=== PATIENT | male | born 1960 | race Caucasian/White ===

== ENCOUNTER 2022-04-16 10:48 | Inpatient (IN) | payer SELFPAY ==
[2022-04-16 11:31] LABS: #Lymphocytes 0.4 thou/uL (1.20-3.40); #Monocytes 0.9 thou/uL (0.11-0.59); #Neutrophils 8.4 thou/uL (1.40-6.50); %Basophils 0.1 % (0.0-1.0); %Eosinophils 0.1 % (0.0-10.0); %Lymphocytes 4.4 % (21.0-51.0); %Neutrophils 86.5 % (42.0-75.0); Hemoglobin 13.9 g/dL (14.0-18.0); Mean Corpuscular HGB CONC 34.8 g/dL (32.0-36.0); Mean Corpuscular Hemoglobin 35.1 pg (27.0-31.0); Mean Platelet Volume 7.7 fL (7.4-10.4); Platelet Count 140 10x3/uL (130-400); RBC Distribution Width 12.7 % (11.5-14.5); Red Blood Cell (RBC) Count 3.97 mill/uL (4.70-6.10); White Blood Cell (WBC) Count 9.8 10x3/uL (4.8-10.8)
[2022-04-16 11:51] LABS: ALT (SGPT) 107 U/L (8-55); AST (SGOT) 579 U/L (5-34); Albumin 3.4 g/dL (3.4-4.8); Alkaline Phosphatase 61 U/L (40-110); Anion Gap 19 mmol/L (10-20); BUN (Urea Nitrogen) 56 mg/dL (8.4-25.7); Bilirubin, Total 1.1 mg/dL (0.2-1.2); Calc. Creatinine Clearance 0 mL/min (70-130); Calcium 8.4 mg/dL (7.8-10.44); Carbon Dioxide 16 mmol/L (23-31); Chloride 108 mmol/L (98-107); Estimated GFR 37; Globulin 2.6 g/dL (2.4-3.5); Glucose 85 mg/dL (80-115); Lipase Less than 4 U/L (8-78); Potassium 4.5 mmol/L (3.5-5.1); Sodium 138 mmol/L (136-145)
[2022-04-16 12:10] LABS: Bacteria/HPF 2+ HPF (None Seen); Bilirubin Negative (Negative); Blood, Urine 3+ (Negative); Clarity Cloudy (Clear); Glucose, Urine (Dipstick) 500 mg/dL (Negative); Ketone, Urine Trace mg/dL (Negative); Leukocyte Negative Leu/uL (Negative); Nitrite Negative (Negative); Protein, Urine (Dipstick) 30 mg/dL (Neg-Trace); RBC/HPF 0-3 HPF (0-3); Specific Gravity, Urine 1.027 (1.002-1.036); Squamous Epithelial 0-3 HPF (0-3); Urobilinogen Normal mg/dL (Less than 2); pH, Urine 5.5 (5.0-9.0)
[2022-04-16 12:14] LABS: CKMB 76.3 ng/mL (0-6.6)
[2022-04-16 12:17] LABS: Amphetamine Not Detected (NotDetected); Barbiturates Screen Not Detected (NotDetected); Benzodiazepine Screen Not Detected (NotDetected); Cocaine Metabolite Screen Not Detected (NotDetected); Methadone Not Detected (NotDetected); Methamphetamine Not Detected (NotDetected); Opiate Screen Not Detected (NotDetected); Oxycodone Screen Not Detected (NotDetected); Phencyclidine (PCP) Not Detected (NotDetected); THC/Cannabinoid Screen Not Detected (NotDetected); Tricyclic Screen Detected (NotDetected)
[2022-04-16 12:58] LABS: Magnesium 2.4 mg/dL (1.6-2.6)
[2022-04-16] MEDS ORDERED: Aspirin Chewable 81 MG TAB ONE (13:13)
[2022-04-16] MEDS ORDERED: Ziprasidone 20 MG VIAL ONE (13:13)
[2022-04-16 13:14] LABS: Acetaminophen Less than 10.0 mcg/mL (10.0-30.0); Alcohol Less than 10 mg/dL (Less than 10); Salicylate Less than 8.0 mg/dL (15.0-30.0)
[2022-04-16] MEDS ORDERED: Sterile Water 10 ML ONE (13:16)
[2022-04-16] MEDS ORDERED: Ondansetron PF 4 MG/2 ML Vial IVP PRN (14:22)
[2022-04-16 14:25] LABS: Creatinine, Urine 159.04 mg/dL (63-166)
[2022-04-16 14:27] LABS: SARS-CoV-2 NAA Rapid Test Not Detected (NotDetected)
[2022-04-16] MEDS ORDERED: Lactated Ringer's 1,000 ML IV SCH (14:30)
[2022-04-16 15:44] LABS: Lactic Acid 1.8 mmol/L (0.5-2.2)
[2022-04-16 15:53] LABS: Troponin I 0.084 ng/mL (< 0.028)
[2022-04-16] MEDS: Lactated Ringer's 1,000 ML IV SCH ×2 (16:17→22:05)
[2022-04-16 19:48] LABS: Troponin I 0.072 ng/mL (< 0.028)
[2022-04-17] MEDS: Lactated Ringer's 1,000 ML IV SCH ×4 (01:52→17:02)
[2022-04-17] MEDS ORDERED: diphenhydrAMINE 50 MG/ML VIAL IVP SCH (02:15)
[2022-04-17] MEDS ORDERED: Ziprasidone 20 MG VIAL IM SCH (05:45)
[2022-04-17 05:59] LABS: CK (CPK) 17821 U/L (30-200)
[2022-04-17] MEDS ORDERED: Dextrose 10% in Water 250 ML IV SCH (06:00)
[2022-04-17] MEDS ORDERED: Sterile Water 10 ML VIAL FS PRN (06:00)
[2022-04-17 06:07] LABS: ALT (SGPT) 108 U/L (8-55); AST (SGOT) 471 U/L (5-34); Albumin 3.1 g/dL (3.4-4.8); Alkaline Phosphatase 57 U/L (40-110); Anion Gap 15 mmol/L (10-20); BUN (Urea Nitrogen) 38 mg/dL (8.4-25.7); Calc. Creatinine Clearance 32 mL/min (70-130); Calcium 8.7 mg/dL (7.8-10.44); Carbon Dioxide 18 mmol/L (23-31); Chloride 110 mmol/L (98-107); Estimated GFR 87; Globulin 2.8 g/dL (2.4-3.5); Glucose 54 mg/dL (80-115); Potassium 4.3 mmol/L (3.5-5.1); Protein, Total 5.9 g/dL (5.8-8.1); Sodium 139 mmol/L (136-145)
[2022-04-17] MEDS ORDERED: Haloperidol Lactate 5 MG/ML VIAL SLOW IVP SCH (09:45)
[2022-04-17] MEDS ORDERED: Haloperidol Lactate 5 MG/ML VIAL ONE ×2 (15:09→17:34)
[2022-04-17] MEDS ORDERED: Haloperidol Lactate 5 MG/ML VIAL IM SCH ×2 (15:45→17:45)
[2022-04-17] MEDS ORDERED: Lorazepam 2 MG/ML VIAL SLOW IVP SCH (17:00)
[2022-04-17] MEDS ORDERED: diphenhydrAMINE 50 MG/ML VIAL ONE (17:34)
[2022-04-17] MEDS ORDERED: diphenhydrAMINE 50 MG/ML VIAL IM SCH (17:45)
[2022-04-17] MEDS: Nicotine 14 MG PATCH TD SCH (18:58)
[2022-04-17] MEDS: Dextrose 5%-Lactated Ringers 1,000 ML IV SCH (18:59)
[2022-04-17] MEDS ORDERED: Diazepam 10 MG/2 ML SYRINGE IVP SCH (19:45)
[2022-04-17] MEDS ORDERED: Dextrose 50% Abboject 50 ML SYRINGE SLOW IVP PRN (21:34)
[2022-04-17] MEDS ORDERED: Dextrose 5% in Water 1,000 ML IV PRN (21:34)
[2022-04-18] MEDS: Dextrose 5%-Lactated Ringers 1,000 ML IV SCH ×3 (02:09→17:48)
[2022-04-18 02:43] LABS: ALT (SGPT) 104 U/L (8-55); AST (SGOT) 316 U/L (5-34); Albumin 2.8 g/dL (3.4-4.8); Alkaline Phosphatase 54 U/L (40-110); Anion Gap 10 mmol/L (10-20); BUN (Urea Nitrogen) 19 mg/dL (8.4-25.7); Bilirubin, Total 0.8 mg/dL (0.2-1.2); Calc. Creatinine Clearance 38 mL/min (70-130); Calcium 8.3 mg/dL (7.8-10.44); Carbon Dioxide 24 mmol/L (23-31); Chloride 108 mmol/L (98-107); Estimated GFR 98; Globulin 2.5 g/dL (2.4-3.5); Glucose 113 mg/dL (80-115); Potassium 4.1 mmol/L (3.5-5.1); Protein, Total 5.3 g/dL (5.8-8.1); Sodium 138 mmol/L (136-145)
[2022-04-18 02:56] LABS: CK (CPK) 7261 U/L (30-200)
[2022-04-18] MEDS ORDERED: Diazepam 10 MG/2 ML SYRINGE IVP SCH ×3 (03:45→05:45)
[2022-04-18] MEDS ORDERED: Diazepam 5 MG TAB PO SCH ×4 (10:45→21:00)
[2022-04-18 12:56] VITALS: BMI 19.3
[2022-04-18] MEDS: Nicotine 14 MG PATCH TD SCH (17:48)
[2022-04-19] MEDS: Dextrose 5%-Lactated Ringers 1,000 ML IV SCH ×2 (01:15→08:14)
[2022-04-19 06:22] LABS: ALT (SGPT) 74 U/L (8-55); AST (SGOT) 138 U/L (5-34); Albumin 2.4 g/dL (3.4-4.8); Alkaline Phosphatase 51 U/L (40-110); Anion Gap 9 mmol/L (10-20); BUN (Urea Nitrogen) 13 mg/dL (8.4-25.7); Bilirubin, Total 0.7 mg/dL (0.2-1.2); CK (CPK) 2315 U/L (30-200); Calc. Creatinine Clearance 92 mL/min (70-130); Calcium 8.1 mg/dL (7.8-10.44); Carbon Dioxide 27 mmol/L (23-31); Chloride 107 mmol/L (98-107); Estimated GFR 101; Globulin 2.5 g/dL (2.4-3.5); Glucose 112 mg/dL (80-115); Potassium 3.3 mmol/L (3.5-5.1); Protein, Total 4.9 g/dL (5.8-8.1); Sodium 140 mmol/L (136-145)
[2022-04-19] MEDS ORDERED: Diazepam 5 MG TAB PO SCH ×3 (08:00→21:00)
[2022-04-19] MEDS: Lactated Ringer's 1,000 ML IV SCH ×2 (08:15→17:37)
[2022-04-19] MEDS ORDERED: Potassium Chloride 20 MEQ TAB PO SCH (08:45)
[2022-04-19] MEDS: Nicotine 14 MG PATCH TD SCH (17:40)
[2022-04-20] MEDS: Lactated Ringer's 1,000 ML IV SCH ×3 (03:52→17:34)
[2022-04-20 05:41] LABS: #Eosinphils 0.1 thou/uL (0.0-0.7); #Lymphocytes 1.6 thou/uL (1.20-3.40); #Monocytes 0.7 thou/uL (0.11-0.59); #Neutrophils 5.5 thou/uL (1.40-6.50); %Basophils 0.1 % (0.0-1.0); %Eosinophils 1.8 % (0.0-10.0); %Lymphocytes 19.7 % (21.0-51.0); %Monocytes 8.9 % (0.0-10.0); %Neutrophils 69.6 % (42.0-75.0); Mean Corpuscular Hemoglobin 34.9 pg (27.0-31.0); Mean Platelet Volume 7.6 fL (7.4-10.4); Platelet Count 154 10x3/uL (130-400); RBC Distribution Width 12.3 % (11.5-14.5); Red Blood Cell (RBC) Count 3.16 mill/uL (4.70-6.10); White Blood Cell (WBC) Count 7.9 10x3/uL (4.8-10.8)
[2022-04-20 06:00] LABS: ALT (SGPT) 71 U/L (8-55); AST (SGOT) 94 U/L (5-34); Albumin 2.6 g/dL (3.4-4.8); Alkaline Phosphatase 55 U/L (40-110); Anion Gap 11 mmol/L (10-20); BUN (Urea Nitrogen) 14 mg/dL (8.4-25.7); Bilirubin, Total 0.7 mg/dL (0.2-1.2); CK (CPK) 1187 U/L (30-200); Calc. Creatinine Clearance 100 mL/min (70-130); Carbon Dioxide 25 mmol/L (23-31); Chloride 107 mmol/L (98-107); Estimated GFR 104; Globulin 2.2 g/dL (2.4-3.5); Glucose 95 mg/dL (80-115); Potassium 3.4 mmol/L (3.5-5.1); Protein, Total 4.8 g/dL (5.8-8.1); Sodium 140 mmol/L (136-145)
[2022-04-20] MEDS ORDERED: Potassium Chloride 20 MEQ TAB PO SCH (08:15)
[2022-04-20] MEDS ORDERED: Polyethylene Glycol 3350 17 GM Packet PO SCH (16:15)
[2022-04-20] MEDS: Nicotine 14 MG PATCH TD SCH ×2 (17:33→17:35)
[2022-04-20] MEDS: Famotidine 20 MG TAB PO SCH (21:38)
[2022-04-21 05:39] LABS: ALT (SGPT) 87 U/L (8-55); AST (SGOT) 86 U/L (5-34); Albumin 2.7 g/dL (3.4-4.8); Alkaline Phosphatase 69 U/L (40-110); Anion Gap 11 mmol/L (10-20); BUN (Urea Nitrogen) 10 mg/dL (8.4-25.7); Bilirubin, Total 0.7 mg/dL (0.2-1.2); CK (CPK) 716 U/L (30-200); Calc. Creatinine Clearance 96 mL/min (70-130); Calcium 8.5 mg/dL (7.8-10.44); Carbon Dioxide 26 mmol/L (23-31); Chloride 105 mmol/L (98-107); Estimated GFR 103; Globulin 2.6 g/dL (2.4-3.5); Glucose 89 mg/dL (80-115); Potassium 3.7 mmol/L (3.5-5.1); Protein, Total 5.3 g/dL (5.8-8.1); Sodium 138 mmol/L (136-145)
[2022-04-21] MEDS: Lactated Ringer's 1,000 ML IV SCH (05:58)
[2022-04-21] MEDS: Multivit, Therapeutic 1 TAB PO SCH (09:47)
[2022-04-21] MEDS: Famotidine 20 MG TAB PO SCH ×2 (09:47→22:29)
[2022-04-21] MEDS: Polyethylene Glycol 3350 17 GM Packet PO SCH (09:48)
[2022-04-21] MEDS: Nicotine 14 MG PATCH TD SCH (19:29)
[2022-04-22] MEDS: Famotidine 20 MG TAB PO SCH (09:11)
[2022-04-22] MEDS: Polyethylene Glycol 3350 17 GM Packet PO SCH (09:11)
[2022-04-22] MEDS: Multivit, Therapeutic 1 TAB PO SCH (09:11)
[2022-04-22 11:44] VITALS: BP 107/59; TEMP 98.8
== END 2022-04-22 15:45 | DRG 917 ==
LOC: ERS 10:48 → ERHOLD 13:27 → NEURO 20:51
PROVIDERS: ADMIT Family Medicine; ATTEND Student in an Organized Health Care Education/Training Program
PROC: HZ2ZZZZ Detoxification Services for Substance Abuse Treatment (ICD-10-PCS; principal; 2022-04-16)
DX: T43.592A Poisoning by other antipsychotics and neuroleptics, intentional self-harm, initial encounter (principal); G92.8 Other toxic encephalopathy; M62.82 Rhabdomyolysis; N17.9 Acute kidney failure, unspecified; F10.239 Alcohol dependence with withdrawal, unspecified; Z20.822 Contact with and (suspected) exposure to COVID-19; R74.01 Elevation of levels of liver transaminase levels; I45.81 Long QT syndrome; D53.9 Nutritional anemia, unspecified; E16.2 Hypoglycemia, unspecified; R77.8 Other specified abnormalities of plasma proteins; R45.1 Restlessness and agitation; Z78.1 Physical restraint status
CPT/HCPCS: 36415; 36416; 70450; 71045; 80053; 80306; 80307; 81003; 81015; 82550; 82553; 82570; 83605; 83690; 83735; 84300; 84443; 84484; 85025; 85379; 87040; 87086; 93005; 94760; 96360; 96361; 96372; J1200; J1630; J1650; J2060; J3360; J3411; J3486; J7120